=== PATIENT | female | born 1990 | race Caucasian/White ===

== ENCOUNTER 2019-04-22 09:07 | Emergency (ER) | payer BC ==
[~2019-04-22] VITALS: Ht 160 cm; Wt 49.0 kg
[~2019-04-22 09:07] MED LIST: HYDR-4011 PO; IBUP-1542 PO; METH500T PO
[2019-04-22 09:17] VITALS: Ht 160 cm; Wt 49.0 kg
[2019-04-22] MEDS ORDERED: HYDROCODONE/APAP (10/325) TAB PO ONE (10:30)
[2019-04-22] MEDS ORDERED: ONDANSETRON (ODT) 4 MG TAB ODT ONE (10:30)
[2019-04-22 12:00] VITALS: BP 98/71; PULSE 85; RESP 18
== END 2019-04-22 12:00 | disposition home or self-care (01) ==
LOC: E/R 09:07
DX: S16.1XXA Strain of muscle, fascia and tendon at neck level, initial encounter (principal); S20.219A Contusion of unspecified front wall of thorax, initial encounter; S39.012A Strain of muscle, fascia and tendon of lower back, initial encounter; R40.2142 Coma scale, eyes open, spontaneous, at arrival to emergency department; R40.2252 Coma scale, best verbal response, oriented, at arrival to emergency department; R40.2362 Coma scale, best motor response, obeys commands, at arrival to emergency department; V43.52XA Car driver injured in collision with other type car in traffic accident, initial encounter
CPT/HCPCS: 71045; 72040; 72100; 84703